=== PATIENT | male | born 1980 | race Caucasian/White ===

== ENCOUNTER → 2019-01-25 | Outpatient (CLI) | payer OTHER ==
[~2019-01-25] MED LIST: IOHEXOL 240 MG/ML 50ML VIAL. ONE; IOHEXOL 300 MG/ML 75 ML VIAL. IV ONE
[2019-01-25 14:21] LABS: BASO % 0 % (0-3); EOS # 0.1 x10^3/uL (0.0-0.7); EOS % 1 % (0-3); HEMATOCRIT 46.9 % (39.0-53.0); HEMOGLOBIN 15.9 g/dL (13.0-17.5); LYMPH # 0.9 x10^3/uL (1.0-4.8); LYMPH % 9 % (24-48); MEAN CORPUSCULAR HEMOGLOBIN 30 pg (25-35); MEAN CORPUSCULAR HGB CONC 34 g/dL (31-37); MEAN CORPUSCULAR VOLUME 88 fL (79-100); MONO # 0.5 x10^3/uL (0.0-1.1); MONO % 5 % (0-9); NEUT # 9.2 x10^3uL (1.8-7.7); NEUT % 85 % (31-73); PLATELET COUNT 276 x10^3/uL (140-400); RED BLOOD COUNT 5.35 x10^6/uL (4.30-5.70); RED CELL DISTRIBUTION WIDTH 12.8 % (11.5-14.5); WHITE BLOOD COUNT 10.7 x10^3/uL (4.0-11.0)
[2019-01-25 14:26] LABS: C REACTIVE PROTEIN 8.6 mg/L (0-3.3); CALCIUM 9.1 mg/dL (8.5-10.1); CREATININE 1.1 mg/dL (0.7-1.3); GFR 74.5
--- NOTE | 2019-01-25 14:59 | RAD ---
CT ABD PELV W/ORAL IV CONTRAST Indication: RLQ PAIN FOR 1 DAY Exposure: One or more of the following individualized dose reduction techniques were utilized for this examination: 1. Automated exposure control 2. Adjustment of the mA and/or kV according to patient size 3. Use of iterative reconstruction technique. Comparison: None are available. Contrast: Intravenous contrast was given. Oral contrast was given. FINDINGS: Lung bases are clear. Small subcentimeter liver lesions are identified, at least 3, measuring up to 7 mm. These are too small characterize but would most commonly be benign such as cysts in the absence of other relevant clinical history such as primary neoplasm. Spleen unremarkable. Pancreas unremarkable. No adrenal mass. Kidneys demonstrate symmetric enhancement without focal lesion or hydronephrosis. Gallbladder surgically absent. Aorta nonaneurysmal. Small lymph nodes are identified, largest in the retroperitoneal region measuring 5 mm in short axis. Small inguinal lymph nodes also identified. No pathologic enlargement is suspected. No evidence of bowel obstruction or acute colitis. The appendix is visualized and normal. No ascites or pneumoperitoneum. Urinary bladder grossly unremarkable. No evidence of pelvic mass. No evidence of destructive bone lesion. IMPRESSION: 1. No acute findings. 2. No evidence of acute appendicitis. 3. Small subcentimeter hepatic lesions, nonspecific but most likely benign in the absence of other relevant clinical history. Electronically signed by: Olegario Price MD (01/25/2019 2:56 PM) [id number]
== END | disposition home or self-care (01) ==
LOC: CT 13:14
PROVIDERS: ATTEND Family Medicine
DX: K76.89 Other specified diseases of liver (principal); A09 Infectious gastroenteritis and colitis, unspecified
CPT/HCPCS: 36415; 74177; 80048; 85025; 86140; Q9967